=== PATIENT | female | born 1965 | race Caucasian/White ===

== ENCOUNTER → 2024-06-14 | Outpatient (CLI) | payer BC | LOC: M EKG 09:59 | PROVIDERS: ATTEND Registered Nurse | DX: R00.2 Palpitations (principal) ==

== ENCOUNTER → 2024-08-07 | Outpatient (CLI) | payer BC | LOC: EDUNIT# 07-17 14:30 → M CARPUL 11:09 | PROVIDERS: ATTEND Registered Nurse | DX: R07.9 Chest pain, unspecified (principal); R94.31 Abnormal electrocardiogram [ECG] [EKG] ==

== ENCOUNTER → 2024-08-18 | Outpatient (CLI) | payer BC | LOC: M PLAIMG 09:43 → EDUNIT# 10:00 | PROVIDERS: ATTEND Registered Nurse | DX: R94.31 Abnormal electrocardiogram [ECG] [EKG] (principal); R06.02 Shortness of breath ==

== ENCOUNTER → 2024-10-21 | Outpatient (REF) | payer BC | LOC: M LAB REF 16:26 | PROVIDERS: ATTEND Surgery | DX: D48.5 Neoplasm of uncertain behavior of skin (principal) ==

== ENCOUNTER 2024-11-25 07:23 | Day surgery (SDC) | payer BC ==
[~2024-11-25] VITALS: Ht 154.9 cm; Wt 94.3 kg
[~2024-11-25 07:23] MED LIST: ATOR40TA75 PO; LEXA1TAB PO; METF500T13 PO; TRUL10IN SC
[2024-11-25 08:53] VITALS: TEMP 97.9
[2024-11-25 09:07] VITALS: BP 107/56; O2SAT 96
== END 2024-11-25 09:13 | disposition home or self-care (01) ==
LOC: M OPP 07:23
PROVIDERS: ATTEND Surgery
DX: Z12.11 Encounter for screening for malignant neoplasm of colon (principal); D12.5 Benign neoplasm of sigmoid colon; K64.0 First degree hemorrhoids; K57.30 Diverticulosis of large intestine without perforation or abscess without bleeding; G47.30 Sleep apnea, unspecified; Z79.84 Long term (current) use of oral hypoglycemic drugs; Z79.85 Long-term (current) use of injectable non-insulin antidiabetic drugs; Z79.899 Other long term (current) drug therapy

== ENCOUNTER → 2024-12-25 | Outpatient (CLI) | payer BC ==
[2024-12-25 14:58] LABS: RHEUMATOID FACTOR QUANT 4.3 IU/ML (<14)
[2024-12-25 15:01] LABS: VITAMIN B12 LEVEL 458.0 PG/ML (211-911)
[2024-12-27 03:16] LABS: T P ELECTROPHORESIS SO 6.8 g/dL (6.1-8.1)
== END ==
LOC: M PLALAB 10:00
PROVIDERS: ATTEND Psychiatry & Neurology Neurology
DX: R51.9 Headache, unspecified (principal)

== ENCOUNTER → 2025-03-19 | Outpatient (CLI) | payer BC ==
[2025-03-19 13:49] LABS: BASO # 0.1 10^3/uL (0.0-0.2); BASO % 0.7 % (0.0-1.0); EOS # 0.2 10^3/uL (0.0-0.5); EOS % 1.8 % (0.0-3.0); LYMPH # 3.7 10^3/uL (1.5-5.0); LYMPH % 39.2 % (24.0-44.0); MONO # 0.7 10^3/uL (0.0-0.8); MONO % 7.2 % (2.0-8.0); NEUTROPHILS # 4.8 10^3/uL (1.5-8.5); NEUTROPHILS % 50.7 % (36.0-66.0); PLATELET COUNT, AUTOMATED 292 10^3/uL (150-450)
[2025-03-19 13:54] LABS: IRON (FE) 67 UG/DL (50-170); PERCENT SATURATION 21.1 % (13.2-45.0)
[2025-03-19 13:55] LABS: ALT/SGPT 38 U/L (7.0-40); AST/SGOT 25 U/L (<34); CALCIUM LEVEL 9.2 MG/DL (8.5-10.1); CARBON DIOXIDE LEVEL 33 MMOL/L (20-31); CHLORIDE LEVEL 104 MMOL/L (98-107); CREATININE FOR GFR 0.72 MG/DL (0.55-1.30); GLOMERULAR FILTRATION RATE > 90.0 (>51); POTASSIUM SERUM 4.5 MMOL/L (3.5-5.1); SODIUM LEVEL 143 MMOL/L (136-145)
[2025-03-19 14:04] LABS: ESTIMATED AVERAGE GLUCOSE 151.0 MG/DL (60-110)
== END ==
LOC: M PLALAB 10:15
PROVIDERS: ATTEND Physician Assistant
DX: E61.1 Iron deficiency (principal); E11.9 Type 2 diabetes mellitus without complications